=== PATIENT | male | born 1965 | race Hispanic/Latino ===

== ENCOUNTER 2022-12-09 13:27 | Emergency (ER) | payer SELFPAY ==
[2022-12-09] MEDS ORDERED: Aspirin 81 MG Tab.Chew PO ONE (13:38)
[2022-12-09 14:25] LABS: POTASSIUM,K 3.3 mmol/L (3.5-5.1)
[2022-12-09 14:39] LABS: CORONAVIRUS COVID-19 NAA NEGATIVE (NEGATIVE); INFLUENZA A NAA NEGATIVE (NEGATIVE); INFLUENZA B NAA NEGATIVE (NEGATIVE); RESPIRATORY SYNCYTIAL VIR NAA NEGATIVE (NEGATIVE)
[2022-12-09] MEDS ORDERED: Enoxaparin 100 MG/1 ML Syringe SUBCUT ONE (15:29)
== END 2022-12-09 16:08 ==
LOC: MW.ED 13:27
DX: I21.4 Non-ST elevation (NSTEMI) myocardial infarction (principal); E83.32 Hereditary vitamin D-dependent rickets (type 1) (type 2); Z20.822 Contact with and (suspected) exposure to COVID-19
CPT/HCPCS: 0241U; 36415; 80053; 84484; 85025; 85379; 93005; 99285; A9270; J1650; 93010